=== PATIENT | male | born 1955 | race Caucasian/White ===

== ENCOUNTER 2018-08-24 10:36 | Emergency (ER) | payer SELFPAY ==
[~2018-08-24] VITALS: Ht 175.3 cm; Wt 68.9 kg
[2018-08-24 10:41] VITALS: BP 134/92
== END 2018-08-24 11:23 | disposition home or self-care (01) ==
LOC: ED 11:15
DX: M67.431 Ganglion, right wrist (principal)
CPT/HCPCS: 99282